=== PATIENT | male | born 1990 | race Two or more races ===

== ENCOUNTER 2016-12-27 16:52 | Emergency (ER) | payer SELFPAY ==
[~2016-12-27] VITALS: Ht 180.3 cm; Wt 60.8 kg
[2016-12-27 17:02] VITALS: BP 113/68
== END 2016-12-27 18:36 | disposition home or self-care (01) ==
LOC: ER 16:55
DX: S61.411A Laceration without foreign body of right hand, initial encounter (principal); W22.8XXA Striking against or struck by other objects, initial encounter; Y93.89 Activity, other specified; Y92.091 Bathroom in other non-institutional residence as the place of occurrence of the external cause; Y99.8 Other external cause status
CPT/HCPCS: 12001; 73130; 99284; A4606; A6402; Z7610

== ENCOUNTER 2016-12-31 08:35 | Emergency (ER) | payer SELFPAY ==
[~2016-12-31] VITALS: Ht 180.3 cm; Wt 59.9 kg
[2016-12-31 08:40] VITALS: BP 124/77
== END 2016-12-31 09:00 | disposition home or self-care (01) ==
LOC: ER 08:38
DX: S01.401D Unspecified open wound of right cheek and temporomandibular area, subsequent encounter (principal)
CPT/HCPCS: 99281; A4606; Z7610; Z7502

== ENCOUNTER 2017-01-08 14:09 | Emergency (ER) | payer OTHER, MEDICAID ==
[~2017-01-08] VITALS: Ht 180.3 cm; Wt 59.9 kg
[2017-01-08 14:10] VITALS: BP 127/80
== END 2017-01-08 15:18 | disposition home or self-care (01) ==
LOC: ER 14:14
DX: Z48.01 Encounter for change or removal of surgical wound dressing (principal)
CPT/HCPCS: 99281; A4606; Z7610; Z7502

== ENCOUNTER → 2017-01-12 | Emergency (ER) | payer BC, MEDICAID, OTHER ==
[~2017-01-12] MED LIST: IV SET PRIMARY PUMP SET 1 EA INFUS.SET MC ONE
== END | disposition home or self-care (01) ==
LOC: ER 16:53
DX: S61.411D Laceration without foreign body of right hand, subsequent encounter (principal); X58.XXXD Exposure to other specified factors, subsequent encounter